=== PATIENT | female | born 1970 | race Caucasian/White ===

== ENCOUNTER 2019-04-16 23:44 | Emergency (ER) | payer MEDICAID ==
[~2019-04-16] VITALS: Ht 165.1 cm; Wt 74.0 kg
[2019-04-17] MEDS ORDERED: KETOROLAC 60MG/2ML VIAL IM ONE (00:30)
[2019-04-17 02:02] VITALS: BP 98/61
== END 2019-04-17 02:04 | disposition home or self-care (01) ==
LOC: ER 23:44
DX: N64.4 Mastodynia (principal); I10 Essential (primary) hypertension; Z98.890 Other specified postprocedural states; Z88.0 Allergy status to penicillin
CPT/HCPCS: 71045; 96372; 99283; J1885